=== PATIENT | male | born 1985 | race Caucasian/White ===

== ENCOUNTER 2020-09-06 13:26 | Inpatient (IN) ==
[2020-09-06 14:09] LABS: Basophils # (auto) 0.01 K/uL (0-0.2); Basophils % (auto) 0.3 %; Eosinophils # (auto) 0.24 K/uL (0-0.5); Eosinophils % (auto) 8.1 %; Hematocrit (blood only) 38.6 % (42-52); Hemoglobin 13.9 g/dL (14.0-18.0); Immature Granulocytes # (auto) 0.02 K/uL (0.00-0.02); Immature Granulocytes % (auto) 0.7 %; Lymphocytes # (auto) 1.34 K/uL (1.2-3.4); Lymphocytes % (auto) 45.3 %; Mean Corpuscular Hemoglobin 31.5 pg (25-34); Mean Corpuscular Volume 87.5 fL (80-100); Mean Platelet Volume 9.4 fL (7.4-10.4); Monocytes # (auto) 0.19 K/uL (0.11-0.59); Monocytes % (auto) 6.4 %; Neutrophils # (auto) 1.16 K/uL (1.4-6.5); Neutrophils % (auto) 39.2 %; Platelet Count 104 K/uL (130-400); RDW Coefficient of Variation 14.5 % (11.5-14.5); RDW Standard Deviation 46.1 fL (36.4-46.3); Red Blood Count 4.41 M/uL (4.7-6.1); White Blood Count 2.96 K/uL (4.8-10.8)
[2020-09-06 14:28] LABS: Albumin Level 3.2 gm/dl (3.4-5.0); BUN Creatinine Ratio 9.1 (10-20); Calcium 8.5 mg/dl (8.5-10.1); Creatinine Clr Calc Pharmacy 140.9 ml/min; Est GFR (African American) 138.2 ml/min; Est GFR (Non-African American) 119.2 ml/min; Potassium 3.4 mmol/L (3.5-5.1)
[2020-09-06 14:35] LABS: Albumin Globulin Ratio 1.2 (0.9-2); Bilirubin,Total 1.4 mg/dl (0.2-1); Globulin 2.7 gm/dl (2.5-4.0); Total Protein 5.9 gm/dl (6.4-8.2)
[2020-09-06] MEDS ORDERED: ACETYLCYSTEINE IV ONE ×4 (14:51→21:25)
[2020-09-06] MEDS ORDERED: DEXTROSE 5% IV ONE ×4 (14:51→21:25)
--- NOTE | 2020-09-06 14:51 | Emergency Department Note ---
History of Present Illness General Chief complaint: Illness Stated complaint: DIZZY/FEELING WEAK LIKE HE IS GOING TO FALL OVER Time Seen by Provider: 09/06/20 14:01 History of Present Illness Provider complaint: Dizziness Onset (ago): day(s) 1 Associated symptoms: + nausea/vomiting; no fever/chills 35-year-old male presents emergency department with his for dizziness. Patient reports he had dizziness starting this morning. He states he feels like the room was spinning. He states he is having difficulty focusing his eyes. He reports nausea and vomiting. He reports vomiting 5 times. He reports vomiting clear liquid. No hematemesis coffee-ground emesis or bilious vomiting. No abdominal pain. Patient reports he feels like he has dry mouth. Patient does mention that he took kratom at 8 AM at the request of a friend he told him to take it since he recently had his teeth extracted. Patient states he has been taking Motrin for his dental pain. Patient states he is vaccinated against COVID-19. He drinks 2 alcoholic beverages a day. Patient has no history of any liver problems. No suicidal ideation. Patient was taken to kratom not an intent to hurt himself. Patient states he is not HIV positive. Home Medications Medication Instructions Recorded Confirmed Type inhalational spacing device #1 ea 02/27/20 09/01/20 Rx lamotrigine 100 mg tablet 100 mg PO BID #60 tab 04/03/20 09/06/20 Rx gabapentin 300 mg capsule 300 mg PO TID 90 Days #270 cap 04/23/20 09/06/20 Rx quetiapine 25 mg tablet 25 - 50 mg PO HS #180 tab 04/24/20 09/06/20 Rx ondansetron 8 mg disintegrating 8 mg PO Q8H PRN #60 tab 06/02/20 09/06/20 Rx tablet bupropion HCl 100 mg tablet,12 hr 100 mg PO BID #180 ea 06/03/20 09/06/20 Rx sustained-release clonazepam 0.5 mg tablet 0.5 mg PO BID #60 tab 06/25/20 09/06/20 Rx albuterol sulfate 90 mcg/actuation 2 puff INH BID PRN #18 g 07/21/20 09/06/20 Rx aerosol inhaler lamotrigine 150 mg tablet 150 mg PO BID #180 tab 08/28/20 09/06/20 Rx amlodipine 5 mg PO QAM 09/06/20 09/06/20 History amoxicillin 500 mg PO TID 09/06/20 09/06/20 History chlorthalidone 25 mg PO QAM 09/06/20 09/06/20 History dextroamphetamine [Dexedrine 15 mg PO QAM 09/06/20 09/06/20 History Spansule] olanzapine 10 mg PO PM 09/06/20 09/06/20 History Allergies Allergy/AdvReac Type Severity Reaction Status Date / Time No Known Allergies Allergy Unverified 09/06/20 14:35 Past Med/Surg History Medical History Asthma Attention deficit Benign essential hypertension Depression LGENNY (generalized anxiety disorder) Surgical History S/P hernia surgery S/P tonsillectomy S/P wisdom tooth extraction Family History Mother COPD (chronic obstructive pulmonary disease) Father Congestive heart failure (CHF) Denies family history of Ovarian cancer Prostate cancer Myocardial infarction Breast cancer Colorectal cancer Social History Smoking Status: Current every day smoker Tobacco Type: Cigarettes Age Started Using Tobacco: 27; Cigarettes Per Day: 10; Second Hand Exposure: No; Hx Alcohol Use: Yes Alcohol type: beer Hx Substance Use: No Preferred Language: Bengali Communication Ability: Effective Visual Impairment: No Limitations Hearing Ability: Normal Beliefs That Will Affect Care: None marital status: Current Living Situation: Spouse current occupational status: employed 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 Other Information That Helps Us Care for You: No Feels Safe at Home: Yes Safety Concerns: Feels Safe At This Time Childhood Exposure to Second-Hand Smoke: Yes caffeine: Yes (1-2 cups of coffee daily) Dental Care, Regularly: Yes Physical Activity Frequency: 3-4 Times per Week Seatbelt Use: always Sunscreen Use: Yes Do you think of yourself as: lesbian/tovar/homosexual Assistive Devices: Contacts and Glasses Review of Systems A total of 10 systems reviewed and were otherwise negative Physical Exam Vital Signs Vital Signs - 24 hr 09/06/20 13:33 09/06/20 13:48 09/06/20 13:49 Temperature 36.5 C Temperature Source Temporal Artery Scan Pulse Rate 111 H Pulse Rate [Apical] 107 H 113 H Pulse Rate from SpO2 Sensor Pulse Rhythm Regular Respiratory Rate 18 18 Respiratory Effort / Characteristics Non-Labored Spontaneous Non-Labored Respiratory Depth Normal Normal Respiratory Pattern Regular Blood Pressure 137/73 Blood Pressure [Right Arm] 136/85 121/81 Blood Pressure Mean 94 Blood Pressure Mean [Right Arm] 102 94 Blood Pressure Position [Right Arm] Sitting Standing Pulse Oximetry 94 Oxygen Delivery Method Room Air Sepsis Recent Fever Within 48 Hours No Sepsis New/Unexplained Change in Mental Status No Sepsis Action Taken by Nursing No Action Required 09/06/20 15:51 09/06/20 16:00 09/06/20 16:30 Temperature Temperature Source Pulse Rate 94 H 92 H 97 H Pulse Rate [Apical] Pulse Rate from SpO2 Sensor 94 H 92 H 98 H Pulse Rhythm Respiratory Rate 19 18 15 Respiratory Effort / Characteristics Respiratory Depth Respiratory Pattern Blood Pressure 153/102 H 135/101 H 147/104 H Blood Pressure [Right Arm] Blood Pressure Mean 119 112 118 Blood Pressure Mean [Right Arm] Blood Pressure Position [Right Arm] Pulse Oximetry 97 96 97 Oxygen Delivery Method Sepsis Recent Fever Within 48 Hours Sepsis New/Unexplained Change in Mental Status Sepsis Action Taken by Nursing 09/06/20 17:00 Temperature Temperature Source Pulse Rate 93 H Pulse Rate [Apical] Pulse Rate from SpO2 Sensor 94 H Pulse Rhythm Respiratory Rate 18 Respiratory Effort / Characteristics Respiratory Depth Respiratory Pattern Blood Pressure 157/113 H Blood Pressure [Right Arm] Blood Pressure Mean 127 Blood Pressure Mean [Right Arm] Blood Pressure Position [Right Arm] Pulse Oximetry 95 Oxygen Delivery Method Sepsis Recent Fever Within 48 Hours Sepsis New/Unexplained Change in Mental Status Sepsis Action Taken by Nursing Physical Exam GENERAL: He is oriented to person, place, and time. He appears well-developed and well-nourished. He does not appear distressed. HENT: Exam performed. - Head: Normocephalic and atraumatic. - Right Ear: External ear normal. No mastoid tenderness. - Left Ear: External ear normal. No mastoid tenderness. - Mouth/Throat: The oropharynx is clear and moist. No trismus in the jaw. No dental abscesses or uvula swelling. No oropharyngeal exudate or tonsillar abscesses. EYES: Conjunctivae and EOM are normal. Pupils are equal, round, and reactive to light. Right eye exhibits no discharge. Left eye exhibits no discharge. No scleral icterus. NECK: Normal range of motion. Neck supple. No JVD present. No spinous process tenderness present. No carotid bruit present. No rigidity. No tracheal deviation and normal range of motion present. No Brudzinski's sign and no Kernig's sign noted. CV: Tachycardic rate, regular rhythm, normal heart sounds and intact distal pulses. There is no peripheral edema. Palpable radial pulses bue. PULM/CHEST: Effort normal and breath sounds normal. No respiratory distress. No stridor. He has no wheezes. He has no rales. - Chest Wall: He exhibits no tenderness. ABD: The abdomen is soft. Bowel sounds are normal. He has no distension. No mass is present. There is no tenderness. There is no rebound, no guarding, no Lopez's sign and no tenderness at McBurney's point. Rovsig negative. MUSC/SKEL: Normal range of motion. There is no peripheral edema, tenderness or deformity. LYMPH: No cervical adenopathy. NEURO: He is alert and oriented to person, place, and time. He has normal strength. No cranial nerve deficit or sensory deficit. Coordination and gait normal. GCS eye subscore is 4. GCS verbal subscore is 5. GCS motor subscore is 6. Cerebellar tests wnl. SKIN: Skin is warm and dry. He is not diaphoretic. PSYCH: He has a normal mood and affect. Behavior is normal. Judgment and thought content normal. Course Course 1401: The patient was evaluated in room C1. A complete history and physical exam was performed Cardiac monitoring: An order was placed for continuous cardiac monitoring. The monitor shows a rate of 110 with sinus tachycardia rhythm 1444: Spoke with poison control and they stated that the patient's symptoms of dizziness dry mouth nausea and vomiting are typical with kratom ingestion. Labs show hemoglobin 2.96 AST/ALT 365/3427 respectively. Total bilirubin 1.4. I did discuss the patient's elevated liver enzymes with the [facility] Control [facility] and they did state that given his elevated liver enzymes would be beneficial to give the patient an NAC treatment for 24 hours. Will add Tylenol level, salicylate level, lipase, medical alcohol and drug screen. Patient denies any suicidal or homicidal thoughts. He denies taking the kratom for suicidal purposes. Will obtain CT of his head and face also as well as ultrasound of his gallbladder. 1618: Vital signs stable. Ultrasound of the right upper quadrant is within normal limits. CT of the head and face show possible osteomyelitis. Discussed the case with Dr. Albert RODRIGUEZ on-call who agrees to be a consult states he will evaluate patient in the morning. Vancomycin ordered for the patient. NAC infusing. Patient will be admitted to the [facility] Dr. Mancia team. Administered Medications Lactated Ringer's (Lr) 1,000 mls @ 125 mls/hr IV .Q8H ANDREA Stop: 09/07/20 10:10 Last Admin: 09/06/20 18:41 Dose: 125 mls/hr Documented by: [id number] Ondansetron HCl (Ondansetron Inj 2 Mg/Ml 2 Ml Vial) 4 mg IV Q6H PRN PRN Reason: Nausea Stop: 10/06/20 17:10 Last Admin: 09/06/20 17:15 Dose: 4 mg Documented by: [id number] Discontinued Medications Acetylcysteine 12,980 mg/ (Dextrose) 264.9 mls @ 200 mls/hr IV ONCE ONE; Protocol Stop: 09/06/20 16:10 Last Infusion: 09/06/20 17:19 Dose: 0 mls/hr Documented by: [id number] Admin: 09/06/20 15:52 Dose: 200 mls/hr Documented by: [id number] Acetylcysteine 4,330 mg/ (Dextrose) 521.65 mls @ 125 mls/hr IV ONCE ONE; Protocol Stop: 09/06/20 19:01 Last Admin: 09/06/20 17:15 Dose: 125 mls/hr Documented by: [id number] Ioversol (Optiray 320 100ml) 89 ml IV ONCE ONE Stop: 09/06/20 15:08 Last Admin: 09/06/20 15:07 Dose: 89 ml Documented by: [id number] Medical Decision Making Laboratory Data Result diagrams: 09/06/20 13:55 09/06/20 13:55 Lab Results 09/06/20 09/06/20 09/06/20 Range/Units 13:55 13:55 14:56 WBC 2.96 L (4.8-10.8) K/uL RBC 4.41 L (4.7-6.1) M/uL Hgb 13.9 L (14.0-18.0) g/dL Hct 38.6 L (42-52) % MCV 87.5 (80-100) fL MCH 31.5 (25-34) pg MCHC 36.0 (32-36) g/dL RDW Std Deviation 46.1 (36.4-46.3) fL RDW Coeff of Maria Eugenia 14.5 (11.5-14.5) % Plt Count 104 L (130-400) K/uL MPV 9.4 (7.4-10.4) fL Immature Gran % (Auto) 0.7 % Neut % (Auto) 39.2 % Lymph % (Auto) 45.3 % [place] % (Auto) 6.4 % Eos % (Auto) 8.1 % Baso % (Auto) 0.3 % Neut # (Auto) 1.16 L (1.4-6.5) K/uL Lymph # (Auto) 1.34 (1.2-3.4) K/uL [place] # (Auto) 0.19 (0.11-0.59) K/uL Eos # (Auto) 0.24 (0-0.5) K/uL Baso # (Auto) 0.01 (0-0.2) K/uL Immature Gran # (Auto) 0.02 (0.00-0.02) K/uL Sodium 135 L (136-145) mmol/L Potassium 3.4 L (3.5-5.1) mmol/L Chloride 104 (98-107) mmol/L Carbon Dioxide 23 (21-32) mmol/L Anion Gap 8.0 (3-11) BUN 7 (7-18) mg/dl Creatinine 0.77 (0.6-1.4) mg/dl Est Cr Clr Drug Dosing 140.9 ml/min Est GFR ( Amer) 138.2 ml/min Est GFR (Non-Af Amer) 119.2 ml/min BUN/Creatinine Ratio 9.1 L (10-20) Glucose 137 H (70-99) mg/dl Calcium 8.5 (8.5-10.1) mg/dl Total Bilirubin 1.4 H (0.2-1) mg/dl AST 365 H (15-37) U/L ALT 3427 H (12-78) U/L Alkaline Phosphatase 139 H (45-117) U/L Total Protein 5.9 L (6.4-8.2) gm/dl Albumin 3.2 L (3.4-5.0) gm/dl Globulin 2.7 (2.5-4.0) gm/dl Albumin/Globulin Ratio 1.2 (0.9-2) Lipase (73-393) U/L Urine Color Urine Appearance (Clear) Urine pH (4.5-7.5) Ur Specific [place] (1.000-1.030) Urine Protein (Negative) Urine Glucose (UA) (Negative) Urine Ketones (Negative) Urine Blood (Negative) Urine Nitrite (Negative) Urine Bilirubin (Negative) Urine Urobilinogen (Negative) Ur Leukocyte Esterase (Negative) Salicylates 2.7 L (2.8-20) mg/dl Urine Opiates Screen (Neg) Ur Methadone, Qual (Neg) Acetaminophen < 2 L (10-30) ug/ml Urine Barbiturates (Neg) Ur Phencyclidine (PCP) (Neg) U Amphetamin/Meth Scrn (Neg) MDMA (Ecstasy) Screen (Neg) U Benzodiazepines Scrn (Neg) Ur Cocaine Metabolite (Neg) U Marijuana (THC) Screen (Neg) Ethyl Alcohol mg/dL (0-3) mg/dl COVID-19 Eval Order SARS-CoV-2 (PCR) (Negative) 09/06/20 09/06/20 09/06/20 Range/Units 14:56 14:56 15:51 WBC (4.8-10.8) K/uL RBC (4.7-6.1) M/uL Hgb (14.0-18.0) g/dL Hct (42-52) % MCV (80-100) fL MCH (25-34) pg MCHC (32-36) g/dL RDW Std Deviation (36.4-46.3) fL RDW Coeff of Maria Eugenia (11.5-14.5) % Plt Count (130-400) K/uL MPV (7.4-10.4) fL Immature Gran % (Auto) % Neut % (Auto) % Lymph % (Auto) % [place] % (Auto) % Eos % (Auto) % Baso % (Auto) % Neut # (Auto) (1.4-6.5) K/uL Lymph # (Auto) (1.2-3.4) K/uL [place] # (Auto) (0.11-0.59) K/uL Eos # (Auto) (0-0.5) K/uL Baso # (Auto) (0-0.2) K/uL Immature Gran # (Auto) (0.00-0.02) K/uL Sodium (136-145) mmol/L Potassium (3.5-5.1) mmol/L Chloride (98-107) mmol/L Carbon Dioxide (21-32) mmol/L Anion Gap (3-11) BUN (7-18) mg/dl Creatinine (0.6-1.4) mg/dl Est Cr Clr Drug Dosing ml/min Est GFR ( Amer) ml/min Est GFR (Non-Af Amer) ml/min BUN/Creatinine Ratio (10-20) Glucose (70-99) mg/dl Calcium (8.5-10.1) mg/dl Total Bilirubin (0.2-1) mg/dl AST (15-37) U/L ALT (12-78) U/L Alkaline Phosphatase (45-117) U/L Total Protein (6.4-8.2) gm/dl Albumin (3.4-5.0) gm/dl Globulin (2.5-4.0) gm/dl Albumin/Globulin Ratio (0.9-2) Lipase 111 (73-393) U/L Urine Color Urine Appearance (Clear) Urine pH (4.5-7.5) Ur Specific [place] (1.000-1.030) Urine Protein (Negative) Urine Glucose (UA) (Negative) Urine Ketones (Negative) Urine Blood (Negative) Urine Nitrite (Negative) Urine Bilirubin (Negative) Urine Urobilinogen (Negative) Ur Leukocyte Esterase (Negative) Salicylates (2.8-20) mg/dl Urine Opiates Screen (Neg) Ur Methadone, Qual (Neg) Acetaminophen (10-30) ug/ml Urine Barbiturates (Neg) Ur Phencyclidine (PCP) (Neg) U Amphetamin/Meth Scrn (Neg) MDMA (Ecstasy) Screen (Neg) U Benzodiazepines Scrn (Neg) Ur Cocaine Metabolite (Neg) U Marijuana (THC) Screen (Neg) Ethyl Alcohol mg/dL < 3.0 (0-3) mg/dl COVID-19 Eval Order Covid19 at [facility] SARS-CoV-2 (PCR) (Negative) 09/06/20 09/06/20 09/06/20 Range/Units 15:51 15:51 15:51 WBC (4.8-10.8) K/uL RBC (4.7-6.1) M/uL Hgb (14.0-18.0) g/dL Hct (42-52) % MCV (80-100) fL MCH (25-34) pg MCHC (32-36) g/dL RDW Std Deviation (36.4-46.3) fL RDW Coeff of Maria Eugenia (11.5-14.5) % Plt Count (130-400) K/uL MPV (7.4-10.4) fL Immature Gran % (Auto) % Neut % (Auto) % Lymph % (Auto) % [place] % (Auto) % Eos % (Auto) % Baso % (Auto) % Neut # (Auto) (1.4-6.5) K/uL Lymph # (Auto) (1.2-3.4) K/uL [place] # (Auto) (0.11-0.59) K/uL Eos # (Auto) (0-0.5) K/uL Baso # (Auto) (0-0.2) K/uL Immature Gran # (Auto) (0.00-0.02) K/uL Sodium (136-145) mmol/L Potassium (3.5-5.1) mmol/L Chloride (98-107) mmol/L Carbon Dioxide (21-32) mmol/L Anion Gap (3-11) BUN (7-18) mg/dl Creatinine (0.6-1.4) mg/dl Est Cr Clr Drug Dosing ml/min Est GFR ( Amer) ml/min Est GFR (Non-Af Amer) ml/min BUN/Creatinine Ratio (10-20) Glucose (70-99) mg/dl Calcium (8.5-10.1) mg/dl Total Bilirubin (0.2-1) mg/dl AST (15-37) U/L ALT (12-78) U/L Alkaline Phosphatase (45-117) U/L Total Protein (6.4-8.2) gm/dl Albumin (3.4-5.0) gm/dl Globulin (2.5-4.0) gm/dl Albumin/Globulin Ratio (0.9-2) Lipase (73-393) U/L Urine Color Yellow Urine Appearance Clear (Clear) Urine pH 7.0 (4.5-7.5) Ur Specific [place] 1.027 (1.000-1.030) Urine Protein Negative (Negative) Urine Glucose (UA) Negative (Negative) Urine Ketones Negative (Negative) Urine Blood Negative (Negative) Urine Nitrite Negative (Negative) Urine Bilirubin Negative (Negative) Urine Urobilinogen Negative (Negative) Ur Leukocyte Esterase Negative (Negative) Salicylates (2.8-20) mg/dl Urine Opiates Screen Neg (Neg) Ur Methadone, Qual Neg (Neg) Acetaminophen (10-30) ug/ml Urine Barbiturates Neg (Neg) Ur Phencyclidine (PCP) Neg (Neg) U Amphetamin/Meth Scrn Pos H (Neg) MDMA (Ecstasy) Screen Pos H (Neg) U Benzodiazepines Scrn Neg (Neg) Ur Cocaine Metabolite Neg (Neg) U Marijuana (THC) Screen Neg (Neg) Ethyl Alcohol mg/dL (0-3) mg/dl COVID-19 Eval Order SARS-CoV-2 (PCR) NEGATIVE (Negative) Imaging Data Radiologist's Impression: Gallbladder Ultrasound 09/06/20 14:42 US gallbladder HISTORY: 35 years-old Male transaminitis acutely elevated LFTs COMPARISON: None TECHNIQUE: Multiple real-time sonographic images of the abdominal right upper quadrant were obtained assessing grayscale appearance and color flow FINDINGS: The pancreas is mostly obscured by bowel gas. The liver is within normal limits. No hepatic mass or intrahepatic biliary ductal dilation. Hepatopedal flow noted within the portal vein. Mildly contracted gallbladder. No gallbladder wall thickening, shadowing cholelithiasis or pericholecystic fluid. Normal common bile duct, 3 mm. The imaged right kidney is unremarkable without hydronephrosis. IMPRESSION: 1. No cholelithiasis or sonographic evidence of acute cholecystitis. 2. No biliary ductal dilation. ACT 112: Negative or not required by law. The above report was generated using voice recognition software. It may contain grammatical, syntax or spelling errors. Electronically signed by: Elijah Bower M.D. 09/06/2020 3:[address] 09/06/20 14:42 CT head/brain wo con CLINICAL HISTORY: 35 years-old Male with ams. Acutely altered mental status TECHNIQUE: Multiple axial CT images of the head were obtained without contrast. A dose lowering technique was utilized adhering to the principles of ALARA. COMPARISON: CT maxillofacial same day FINDINGS: No acute intracranial hemorrhage, midline shift, intracranial mass, hydrocephalus, territorial ischemia or abnormal extra-axial collection. The calvarium is intact. The mastoid air cells are clear. Mild mucosal thick ening of the ethmoid air cells. IMPRESSION: No acute intracranial abnormality. ACT 112: Negative or not required by law. The above report was generated using voice recognition software. It may contain grammatical, syntax or spelling errors. Electronically signed by: Elijah Bower M.D. 09/06/2020 3:[address] 09/06/20 14:43 CT facial bones w con HISTORY: 35 years-old Male recent dental extraction ro abscess acute facial pain with recent dental extraction COMPARISON: CT head of same day TECHNIQUE: Multiple axial CT images of the facial bones were obtained following the intravenous administration of 89 mL Optiray 320. A dose lowering technique was used consistent with the principals of ALARA. FINDINGS: The imaged intracranial structures demonstrate no acute abnormality. The bilateral orbits are unremarkable. Streak artifact from dental amalgam hardware limits evaluation of the adjacent tissues. There is no significant inflammatory stranding or abscess identified. Patent airway. Parotid and submandibular glands are unremarkable. No adenopathy. No acute facial bone fracture. The mastoid air cells and middle ear cavities are clear. Moderate mucosal thickening of the ethmoid air cells. Polypoid mucosal thickening of the right maxillary sinus measures up to 2 cm. There is evidence of numerous dental extractions, notably within the mandible. Partially debris and air filled extraction cavities within the mandible with mild dehiscence of the anterior cortex of several teeth, notably within the region of the left mandibular bicuspid distribution on image 118 series 6. IMPRESSION: 1. Evidence of numerous dental extractions, notably within the mandible. There is anterior cortical thinning/dehiscence involving several mandibular tooth sockets, notably within the region of the left mandibular bicuspid distribution. Correlate clinically to exclude osteomyelitis. 2. No significant soft tissue swelling or abscess. 3. Moderate mucosal thickening of the ethmoid air cells. 4. No adenopathy. ACT 112: Negative or not required by law. The above report was generated using voice recognition software. It may contain grammatical, syntax or spelling errors. Electronically signed by: Elijah Bower M.D. 09/06/2020 3:48 PM ECG Data Indication: + other (dizziness) Rate (beats per minute): 105 Rhythm: + normal sinus ECG Intervals/blocks: + Normal QRS, + Normal MI and + Normal QT-c ECG ST segments: + Normal ST segments MDM Narrative 1401: The patient was evaluated in room C1. A complete history and physical exam was performed Cardiac monitoring: An order was placed for continuous cardiac monitoring. The monitor shows a rate of 110 with sinus tachycardia rhythm 1444: Spoke with poison control and they stated that the patient's symptoms of dizziness dry mouth nausea and vomiting are typical with kratom ingestion. Labs show hemoglobin 2.96 AST/ALT 365/3427 respectively. Total bilirubin 1.4. I did discuss the patient's elevated liver enzymes with the Poison Control Center and they did state that given his elevated liver enzymes would be beneficial to give the patient an NAC treatment for 24 hours. Will add Tylenol level, salicylate level, lipase, medical alcohol and drug screen. Patient denies any suicidal or homicidal thoughts. He denies taking the kratom for suicidal purposes. Will obtain CT of his head and face also as well as ultrasound of his gallbladder. 1618: Vital signs stable. Ultrasound of the right upper quadrant is within normal limits. CT of the head and face show possible osteomyelitis. Discussed the case with Dr. [place] [facility] [place] who agrees to be a consult states he will evaluate patient in the morning. Vancomycin ordered for the patient. NAC infusing. Patient will be admitted to the [facility] Dr. Mancia team. Impression & Plan Ingestion of substance, Transaminitis, Osteomyelitis Discharge Plan Visit Data Chief Complaint: Illness Stated Complaint: DIZZY/FEELING WEAK LIKE HE IS GOING TO FALL OVER ED Provider: Royer Acosta Discharge Problem: Ingestion of substance, Transaminitis, Osteomyelitis Patient Disposition: Admitted As Inpatient Discharge Instructions Interventions: ED Discharge Assessment Last Done: 09/06/20 17:47 Discharge Problem: Ingestion of substance Qualifiers: Encounter type: initial encounter Injury intent: accidental or unintentional Qualified Code(s): T65.91XA - Toxic effect of unspecified substance, accidental (unintentional), initial encounter Osteomyelitis Qualifiers: Osteomyelitis type: unspecified type Osteomyelitis location: unspecified site Qualified Code(s): M86.9 - Osteomyelitis, unspecified
[2020-09-06] MEDS ORDERED: OPTIRAY 320 100ml IV ONE (15:07)
--- NOTE | 2020-09-06 15:18 | CT Scan Report ---
CT head/brain wo con CLINICAL HISTORY: 35 years-old Male with ams. Acutely altered mental status TECHNIQUE: Multiple axial CT images of the head were obtained without contrast. A dose lowering tech nique was utilized adhering to the principles of ALARA. COMPARISON: CT maxillofacial same day FINDINGS: No acute intracranial hemorrhage, midline shift, intracranial mass, hydrocephalus, territorial ischem ia or abnormal extra-axial collection. The calvarium is intact. The mastoid air cells are clear. Mild mucosal thickening of the ethmoid air cells. IMPRESSION: No acute intracranial abnormality. ACT 112: Negative or not required by law. The above report was generated using voice recognition software. It may contain grammatical, syntax o r spelling errors. Electronically signed by: Elijah Bower M.D. 09/06/2020 3:17 PM
[2020-09-06 15:37] LABS: Acetaminophen < 2 ug/ml (10-30); Salicylate 2.7 mg/dl (2.8-20)
--- NOTE | 2020-09-06 15:44 | Ultrasound Report ---
US gallbladder HISTORY: 35 years-old Male transaminitis acutely elevated LFTs COMPARISON: None TECHNIQUE: Multiple real-time sonographic images of the abdominal right upper quadrant were obtained assessing grayscale appearance and color flow FINDINGS: The pancreas is mostly obscured by bowel gas. The liver is within normal limits. No hepatic mass or i ntrahepatic biliary ductal dilation. Hepatopedal flow noted within the portal vein. Mildly contracted gallbladder. No gallbladder wall thickening, shadowing cholelithiasis or pericholecystic fluid. Norm al common bile duct, 3 mm. The imaged right kidney is unremarkable without hydronephrosis. IMPRESSION: 1. No cholelithiasis or sonographic evidence of acute cholecystitis. 2. No biliary ductal dilation. ACT 112: Negative or not required by law. The above report was generated using voice recognition software. It may contain grammatical, syntax o r spelling errors. Electronically signed by: Elijah Bower M.D. 09/06/2020 3:43 PM
--- NOTE | 2020-09-06 15:49 | CT Scan Report ---
CT facial bones w con HISTORY: 35 years-old Male recent dental extraction ro abscess acute facial pain with recent dental extraction COMPARISON: CT head of same day TECHNIQUE: Multiple axial CT images of the facial bones were obtained following the intravenous admin istration of 89 mL Optiray 320. A dose lowering technique was used consistent with the principals of ALEXANDREA. FINDINGS: The imaged intracranial structures demonstrate no acute abnormality. The bilateral orbits are unremar kable. Streak artifact from dental amalgam hardware limits evaluation of the adjacent tissues. There is no significant inflammatory stranding or abscess identified. Patent airway. Parotid and submandibu lar glands are unremarkable. No adenopathy. No acute facial bone fracture. The mastoid air cells and middle ear cavities are clear. Moderate muco edouard thickening of the ethmoid air cells. Polypoid mucosal thickening of the right maxillary sinus elsie sures up to 2 cm. There is evidence of numerous dental extractions, notably within the mandible. Part ially debris and air filled extraction cavities within the mandible with mild dehiscence of the anter ior cortex of several teeth, notably within the region of the left mandibular bicuspid distribution o n image 118 series 6. IMPRESSION: 1. Evidence of numerous dental extractions, notably within the mandible. There is anterior cortical t hinning/dehiscence involving several mandibular tooth sockets, notably within the region of the left mandibular bicuspid distribution. Correlate clinically to exclude osteomyelitis. 2. No significant soft tissue swelling or abscess. 3. Moderate mucosal thickening of the ethmoid air cells. 4. No adenopathy. ACT 112: Negative or not required by law. The above report was generated using voice recognition software. It may contain grammatical, syntax o r spelling errors. Electronically signed by: Elijah Bower M.D. 09/06/2020 3:48 PM
[2020-09-06] MEDS ORDERED: VANCOMYCIN HCL 1,750 MG in SODIUM CHLORIDE 0.9% 500 ML IV ONE (16:04)
[2020-09-06] MEDS ORDERED: VANCOMYCIN CONSULT ACTIVE PRN (16:04)
[2020-09-06 16:06] LABS: Appearance Urine Clear (Clear); Bilirubin Urine Negative (Negative); Blood Urine Negative (Negative); Color Urine Yellow; Glucose Urine UA Negative (Negative); Ketones Urine Negative (Negative); Leukocyte Esterase Urine Negative (Negative); Nitrite Urine Negative (Negative); Protein Urine Negative (Negative); Specific Gravity Urine 1.027 (1.000-1.030); Urobilinogen Urine Negative (Negative)
[2020-09-06 16:27] LABS: Amphetamines+Metham, Urine Pos (Neg); Barbiturates, Urine Neg (Neg); Benzodiazepine, Urine Neg (Neg); Cocaine, Urine Neg (Neg); MDMA (Ecstacy), Urine Pos (Neg); Methadone, Urine Neg (Neg); Opiate, Urine Neg (Neg); Phencyclidine, Urine Neg (Neg)
--- NOTE | 2020-09-06 16:32 | History & Physical Report ---
Date of Service September 06, 2020 Assessment & Plan (1) Ingestion of toxin: Patient was taking Tylenol 3 and Motrin all week and then ingested kratom which is a synthetic street drug. He has no side effects of hyperstimulation or anything to that point right now however this may impact his transaminitis. Patient does however claim that some of his mental status changes and ill feelings preceded even his Tylenol 3 ingestion earlier the week (2) Transaminitis: And is extremely unusual picture of transaminitis with ALT being 3000, AST of 300 total bili 1.4 alkaline phosphatase 139. Poison control was called and recommended acetylcysteine protocol which was initiated in the ER Ultrasound gallbladder showed no abnormalities no concern for hepatic vein thrombosis liver size within normal limits (3) Depression: Patient typically takes bupropion 100 twice daily he takes he takes dextroamphetamine which will be held gabapentin 300 3 times daily which be continued lamotrigine 250 twice daily, olanzapine 10 PM , quetiapine 25-50 p.m. which will be held (4) Pain, dental: Will have as needed morphine for dental pain with as needed oxycodone. Oral maxillofacial surgery consultation and patient will be started on Unasyn for oral mucosal coverage for possibility of suggested to be osteomyelitis of his mandible seen on CT scan CT scan reading is as follows "There is anterior cortical thinning/dehiscence involving several mandibular tooth sockets, notably within the region of the left mandibular bicuspid distribution. Correlate clinically to exclude osteomyelitis." (5) Hypertension: Continue amlodipine and will hold chlorthalidone at this time have as needed hydralazine if needed for blood pressure control (6) DVT prophylaxis: CDs at this point time will check PT/INR look at liver synthetic function in the morning History of Present Illness Primary Care Provider: Fred Rios, III, [employer] 35-year-old male presents emergency department with his for dizziness. Patient reports he had dizziness starting this morning. He states he feels like the room was spinning. He states he is having difficulty focusing his eyes. He reports nausea and vomiting. He reports vomiting 5 times. He reports vomiting clear liquid. No hematemesis coffee-ground emesis or bilious vomiting. No abdominal pain. Patient reports he feels like he has dry mouth. Patient does mention that he took kratom at 8 AM at the request of a friend he told him to take it since he recently had his teeth extracted. On further questioning the patient states the symptoms may have preceded his dental pain which began approximately on Tuesday the week prior. States throughout that week he was taking Tylenol 3 and Motrin for his dental pain. Patient states he is vaccinated against COVID-19. He drinks 2 alcoholic beverages a day. Patient has no history of any liver problems. No suicidal ideation. He denies any recent changes in his prescription medications or any other ldip-ymz-zvbsjie or street drugs patient was taken to [facility] not an intent to hurt himself. Patient states he is not HIV positive. Allergies Allergy/AdvReac Type Severity Reaction Status Date / Time No Known Allergies Allergy Unverified 09/06/20 14:35 Home Medications Medication Instructions Recorded Confirmed Type inhalational spacing device #1 ea 02/27/20 09/01/20 Rx lamotrigine 100 mg tablet 100 mg PO BID #60 tab 04/03/20 09/06/20 Rx gabapentin 300 mg capsule 300 mg PO TID 90 Days #270 cap 04/23/20 09/06/20 Rx quetiapine 25 mg tablet 25 - 50 mg PO HS #180 tab 04/24/20 09/06/20 Rx ondansetron 8 mg disintegrating 8 mg PO Q8H PRN #60 tab 06/02/20 09/06/20 Rx tablet bupropion HCl 100 mg tablet,12 hr 100 mg PO BID #180 ea 06/03/20 09/06/20 Rx sustained-release clonazepam 0.5 mg tablet 0.5 mg PO BID #60 tab 06/25/20 09/06/20 Rx albuterol sulfate 90 mcg/actuation 2 puff INH BID PRN #18 g 07/21/20 09/06/20 Rx aerosol inhaler lamotrigine 150 mg tablet 150 mg PO BID #180 tab 08/28/20 09/06/20 Rx amlodipine 5 mg PO QAM 09/06/20 09/06/20 History amoxicillin 500 mg PO TID 09/06/20 09/06/20 History chlorthalidone 25 mg PO QAM 09/06/20 09/06/20 History dextroamphetamine [Dexedrine 15 mg PO QAM 09/06/20 09/06/20 History Spansule] olanzapine 10 mg PO PM 09/06/20 09/06/20 History Past Med/Surg History Medical History Asthma Attention deficit Benign essential hypertension Depression GLENNY (generalized anxiety disorder) Surgical History S/P hernia surgery S/P tonsillectomy S/P wisdom tooth extraction Family History Mother COPD (chronic obstructive pulmonary disease) Father Congestive heart failure (CHF) Denies family history of Ovarian cancer Prostate cancer Myocardial infarction Breast cancer Colorectal cancer Social History Smoking Status: Current every day smoker Tobacco Type: Cigarettes Age Started Using Tobacco: 27; Cigarettes Per Day: 10; Second Hand Exposure: No; Hx Alcohol Use: Yes Alcohol type: beer Hx Substance Use: No Preferred Language: Jamaican Communication Ability: Effective Visual Impairment: No Limitations Hearing Ability: Normal marital status: Current Living Situation: Spouse current occupational status: employed 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 Feels Safe at Home: Yes Childhood Exposure to Second-Hand Smoke: Yes caffeine: Yes (1-2 cups of coffee daily) Dental Care, Regularly: Yes Physical Activity Frequency: 3-4 Times per Week Seatbelt Use: always Sunscreen Use: Yes Do you think of yourself as: lesbian/tovar/homosexual Review of Systems Review of Systems: Mild distress and fatigue no headache, does complain of occasional blurry & double vision Significant lower mandibular pain from front teeth total extraction of 5-6 teeth no speech or swallowing issues no chest pain, pressure or palpitations no shortness of breath, cough or wheezes no abdominal pain, has had increasing nausea or vomiting, has had no diarrhea had significant constipation no dysuria, hematuria or frequency no focal joint pain or swelling no back pain, CVA tenderness or radicular pain no bruising, bleeding or rashes no focal signs of weakness or numbness or feels foggy in his head no complaints of anxiety or depression.. Physical Exam Physical Exam: The patient appeared well nourished and normally developed. Vital signs as documented. Head exam is normocephalic atraumatic Examination of his mandibular jaw shows extraction of the lower front teeth no significant purulence or erythema minor submandibular lymphadenopathy Neck is without JVD, thyromegaly, or carotid bruits. Lungs are clear to auscultation, no focal loss of breath sounds Cardiac exam, Rhythm is regular.. No murmurs, rubs or gallops. Abdominal exam reveals normal bowel sounds, soft non tender, no masses no hepatomegaly Extremities are nonedematous and both pedal pulses are present Neurologic exam is alert and oriented, no focal loss of strength or sensation Skin is without bruises or rashes Psychologically is without concerns for anxiety or depression Results & Data Results & Data ([facility]) Vital Signs (Past 12 Hours) Vital Signs Temp Pulse Pulse Resp BP BP Pulse Ox 09/06/20 16:00 92 H 18 135/101 H 96 09/06/20 15:51 94 H 19 153/102 H 97 09/06/20 13:49 113 H 121/81 09/06/20 13:48 107 H 18 136/85 09/06/20 13:33 97.7 F 111 H 18 137/73 94 Gallbladder Ultrasound 09/06/20 14:42 US gallbladder HISTORY: 35 years-old Male transaminitis acutely elevated LFTs COMPARISON: None TECHNIQUE: Multiple real-time sonographic images of the abdominal right upper quadrant were obtained assessing grayscale appearance and color flow FINDINGS: The pancreas is mostly obscured by bowel gas. The liver is within normal limits. No hepatic mass or intrahepatic biliary ductal dilation. Hepatopedal flow noted within the portal vein. Mildly contracted gallbladder. No gallbladder wall thickening, shadowing cholelithiasis or pericholecystic fluid. Normal common bile duct, 3 mm. The imaged right kidney is unremarkable without hydronephrosis. IMPRESSION: 1. No cholelithiasis or sonographic evidence of acute cholecystitis. 2. No biliary ductal dilation. ACT 112: Negative or not required by law. The above report was generated using voice recognition software. It may contain grammatical, syntax or spelling errors. Electronically signed by: Elijah Bower M.D. 09/06/2020 3:[address] 09/06/20 14:42 CT head/brain wo con CLINICAL HISTORY: 35 years-old Male with ams. Acutely altered mental status TECHNIQUE: Multiple axial CT images of the head were obtained without contrast. A dose lowering technique was utilized adhering to the principles of ALARA. COMPARISON: CT maxillofacial same day FINDINGS: No acute intracranial hemorrhage, midline shift, intracranial mass, hydroceph alus, territorial ischemia or abnormal extra-axial collection. The calvarium is intact. The mastoid air cells are clear. Mild mucosal thickening of the ethmoid air cells. IMPRESSION: No acute intracranial abnormality. ACT 112: Negative or not required by law. The above report was generated using voice recognition software. It may contain grammatical, syntax or spelling errors. Electronically signed by: Elijah Bower M.D. 09/06/2020 3:[address] 09/06/20 14:43 CT facial bones w con HISTORY: 35 years-old Male recent dental extraction ro abscess acute facial pain with recent dental extraction COMPARISON: CT head of same day TECHNIQUE: Multiple axial CT images of the facial bones were obtained following the intravenous administration of 89 mL Optiray 320. A dose lowering technique was used consistent with the principals of ALEXANDREA. FINDINGS: The imaged intracranial structures demonstrate no acute abnormality. The bilateral orbits are unremarkable. Streak artifact from dental amalgam hardware limits evaluation of the adjacent tissues. There is no significant inflammatory stranding or abscess identified. Patent airway. Parotid and submandibular glands are unremarkable. No adenopathy. No acute facial bone fracture. The mastoid air cells and middle ear cavities are clear. Moderate mucosal thickening of the ethmoid air cells. Polypoid mucosal thickening of the right maxillary sinus measures up to 2 cm. There is evidence of numerous dental extractions, notably within the mandible. Partially debris and air filled extraction cavities within the mandible with mild dehiscence of the anterior cortex of several teeth, notably within the region of the left mandibular bicuspid distribution on image 118 series 6. IMPRESSION: 1. Evidence of numerous dental extractions, notably within the mandible. There is anterior cortical thinning/dehiscence involving several mandibular tooth sockets, notably within the region of the left mandibular bicuspid distribution. Correlate clinically to exclude osteomyelitis. 2. No significant soft tissue swelling or abscess. 3. Moderate mucosal thickening of the ethmoid air cells. 4. No adenopathy. ACT 112: Negative or not required by law. The above report was generated using voice recognition software. It may contain grammatical, syntax or spelling errors. Electronically signed by: Elijah Bower M.D. 09/06/2020 3:48 PM PG Care Time/CCT Total # of Minutes Spent Total Time Spent with Patient: Total time spent is greater than 50% in coordination of care (as documented) at patient's floor/unit and/or counseling patient: Coding Level of Care Code 61570 Initial Inpt Care Lvl 3 Diagnoses Ingestion of toxin T65.91XA Transaminitis R74.01 Depression F32.9 Pain, dental K08.89 Hypertension I10 DVT prophylaxis Z29.9
[2020-09-06] MEDS ORDERED: ONDANSETRON INJ 2 MG/ML 2 ML VIAL IV PRN ×2 (17:11→19:14)
[2020-09-06] MEDS ORDERED: HYDROmorphone INJ 0.5 MG/0.5 ML SYR IV PRN (18:11)
[2020-09-06] MEDS: LACTATED RINGER'S 1,000 ML IV SCH (18:41)
[2020-09-06] MEDS ORDERED: hydrALAZINE HCL 20 MG/ML VIAL IV PRN (18:43)
[2020-09-06] MEDS ORDERED: cloNIDine HCL 0.1 MG TAB PO PRN (18:43)
[2020-09-06] MEDS ORDERED: PROMETHAZINE HCL 12.5 MG in SODIUM CHLORIDE 0.9% 50 ML IV PRN (19:13)
[2020-09-06] MEDS ORDERED: ondansetron HCL 8 MG in DEXTROSE 5% 50 ML IV PRN (19:19)
[2020-09-06] MEDS: AMPICILLIN/SULBACTAM SOD 3,000 MG in 0.9 % SODIUM CHLORIDE 100 ML IV SCH (19:22)
[2020-09-06] MEDS ORDERED: lamoTRIgine 100 MG TAB PO SCH ×2 (21:00)
[2020-09-06] MEDS: lamoTRIgine 100 MG TAB PO SCH (21:43)
[2020-09-06] MEDS: clonazePAM 0.5 MG TAB PO SCH (21:43)
[2020-09-06] MEDS: OLANZapine 10 MG TAB PO SCH (21:45)
[2020-09-06] MEDS: GABAPENTIN 300 MG CAP PO SCH (21:45)
[2020-09-06] MEDS: buPROPion SR 100 MG TABCR PO SCH (21:46)
[2020-09-07] MEDS: AMPICILLIN/SULBACTAM SOD 3,000 MG in 0.9 % SODIUM CHLORIDE 100 ML IV SCH ×2 (00:08→06:04)
[2020-09-07] MEDS: LACTATED RINGER'S 1,000 ML IV SCH (03:31)
--- NOTE | 2020-09-07 06:26 | Electrocardiogram Report ---
Test Reason : Blood Pressure : / mmHG Vent. Rate : 105 BPM Atrial Rate : 105 BPM P-R Int : 162 ms QRS Dur : 080 ms QT Int : 342 ms P-R-T Axes : 039 -07 050 degrees QTc Int : 452 ms Sinus tachycardia Low voltage QRS Possible Septal infarct , age undetermined Abnormal ECG No previous ECGs available Confirmed by Gerald Cross ([id number]) on 09/07/2020 6:26:25 AM Referred By: Confirmed By:Gerald Cross
[2020-09-07 06:37] LABS: Hematocrit (blood only) 37.4 % (42-52); Hemoglobin 13.4 g/dL (14.0-18.0); Mean Corpuscular Hemoglobin 31.5 pg (25-34); Mean Corpuscular Hgb Conc 35.8 g/dL (32-36); Mean Platelet Volume 9.3 fL (7.4-10.4); Platelet Count 113 K/uL (130-400); RDW Coefficient of Variation 14.8 % (11.5-14.5); RDW Standard Deviation 47.5 fL (36.4-46.3); Red Blood Count 4.25 M/uL (4.7-6.1); White Blood Count 2.78 K/uL (4.8-10.8)
[2020-09-07 06:53] LABS: Prothrombin Time 10.6 Seconds (9.0-12.0)
[2020-09-07 07:10] LABS: Albumin Level 2.8 gm/dl (3.4-5.0); Aspartate Aminotransferase 173 U/L (15-37); BUN Creatinine Ratio 7.2 (10-20); Blood Urea Nitrogen 4 mg/dl (7-18); Calcium 8.1 mg/dl (8.5-10.1); Carbon Dioxide 24 mmol/L (21-32); Chloride 112 mmol/L (98-107); Creatinine Clr Calc Pharmacy 193.7 ml/min; Est GFR (African American) > 150.0 ml/min; Est GFR (Non-African American) 135.9 ml/min; Glucose 102 mg/dl (70-99); Potassium 3.6 mmol/L (3.5-5.1)
[2020-09-07 07:16] LABS: Alanine Aminotransferase 2438 U/L (12-78); Alkaline Phosphatase 113 U/L (45-117); Globulin 2.8 gm/dl (2.5-4.0); Total Protein 5.6 gm/dl (6.4-8.2)
[2020-09-07 07:41] LABS: Sodium 142 mmol/L (136-145)
--- NOTE | 2020-09-07 07:52 | Oral/Maxillofacial Consult ---
Date of Consultation September 07, 2020 History of Present Illness Attending Physician: Vern Morgan MD Oral Maxillofacial Surgery Exam admitted to 283 bed 1 Request for consult regarding abnormal CT scan Andriy : Upon review of the case,CT scan and clinical exam: There is no clinical evidence to support the CT scan findings regarding osteomyelitis. I can say with certainty that no osteomyelitis exists Present Complaint: 35-year-old male presented to the emergency department with his for dizziness. I had my lower front teeth removed on September 04 at [facility] in [place]. Pain Symptoms have been ongoing for a while they would come and go. The symptoms have gotten worse prompting extraction of teeth on September 04. Patient states he has been taking Motrin and Tylenol # 3 for his dental pain. Patient reports he had dizziness starting Tuesday morning. He states he is having difficulty focusing his eyes. Patient does mention that he took Kratom at 8 AM at the request of a friend he told him to take Oral Exam: Finding--Excellent result, well sutured extraction sites, no swelling, tissue tone excellent. Pain is now well controlled. At 3 days no evidence of infection, swelling, bleeding to suggest any deviation of normal healing. Imaging: CT findings Evidence of numerous dental extractions, notably within the mandible. There is anterior cortical thinning/dehiscence involving several mandibular tooth sockets, notably within the region of the left mandibular bicuspid distribution. Correlate clinically to exclude osteomyelitis. I reviewed the CT scan and note the recent dental extractions. The CT scan shows the extraction sites as expected at [address] does not support any evidence of osteomyelitis. Based on the fact that the surgical sites are healing so well, no swelling, no drainage and resolving pain I see no clinical evidence of any type of bony infection. There is no clinical evidence to support the CT scan findings regarding osteomyelitis. I can say with certainty that no osteomyelitis exists Soft tissue: floor of the mouth, tongue, hard/soft palate, posterior pharyngeal area all with in normal limits, no pathology or abnormal findings noted. Extraction site at 3 days look Great! No facial swelling or chin swelling Oral tissue looks good at 3 days post extraction of anterior teeth. TMJ exam: No pop, clicking, pain, good ROM, No history of TMJ injury or dysfunction Head/Neck exam: Neck is supple, FROM, Able to extend and flex neck w/o difficulty, no masses, no abnormalities, no airway issues, no signs of infection to support the CT scan suggestion of an osteomyelitis. Treatment Plan: No treatment from an oral surgery point of view is needed while in hospital. Diet as tolerated Patient has follow up from dental office in 1 week. I reviewed the treatment plan with Og Understanding was expressed. Time was given for questions regarding his recent dental surgery and post op care. Home care reviewed: tooth brushing, rinsing, follow up care with his dentist diet=[id number] dental. Discussed activity level, driving/work while on Rx pain Meds. Allergies Allergy/AdvReac Type Severity Reaction Status Date / Time No Known Allergies Allergy Unverified 09/06/20 14:35 Home Medications Medication Instructions Recorded Confirmed Type inhalational spacing device #1 ea 02/27/20 09/01/20 Rx lamotrigine 100 mg tablet 100 mg PO BID #60 tab 04/03/20 09/06/20 Rx gabapentin 300 mg capsule 300 mg PO TID 90 Days #270 cap 04/23/20 09/06/20 Rx quetiapine 25 mg tablet 25 - 50 mg PO HS #180 tab 04/24/20 09/06/20 Rx ondansetron 8 mg disintegrating 8 mg PO Q8H PRN #60 tab 06/02/20 09/06/20 Rx tablet bupropion HCl 100 mg tablet,12 hr 100 mg PO BID #180 ea 06/03/20 09/06/20 Rx sustained-release clonazepam 0.5 mg tablet 0.5 mg PO BID #60 tab 06/25/20 09/06/20 Rx albuterol sulfate 90 mcg/actuation 2 puff INH BID PRN #18 g 07/21/20 09/06/20 Rx aerosol inhaler lamotrigine 150 mg tablet 150 mg PO BID #180 tab 08/28/20 09/06/20 Rx amlodipine 5 mg PO QAM 09/06/20 09/06/20 History amoxicillin 500 mg PO TID 09/06/20 09/06/20 History chlorthalidone 25 mg PO QAM 09/06/20 09/06/20 History dextroamphetamine [Dexedrine 15 mg PO QAM 09/06/20 09/06/20 History Spansule] olanzapine 10 mg PO PM 09/06/20 09/06/20 History Patient History Medical History Asthma Attention deficit Benign essential hypertension Depression GLENNY (generalized anxiety disorder) Surgical History S/P hernia surgery S/P tonsillectomy S/P wisdom tooth extraction Family History Mother COPD (chronic obstructive pulmonary disease) Father Congestive heart failure (CHF) Denies family history of Ovarian cancer Prostate cancer Myocardial infarction Breast cancer Colorectal cancer Social History Smoking Status: Current every day smoker Tobacco Type: Cigarettes Age Started Using Tobacco: 27; Cigarettes Per Day: 10; Second Hand Exposure: No; Hx Alcohol Use: Yes Alcohol type: beer Hx Substance Use: No Preferred Language: Citizen Of [place] Communication Ability: Effective Visual Impairment: No Limitations Hearing Ability: Normal Beliefs That Will Affect Care: None marital status: Current Living Situation: Spouse current occupational status: employed 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 Other Information That Helps Us Care for You: No Feels Safe at Home: Yes Safety Concerns: Feels Safe At This Time Childhood Exposure to Second-Hand Smoke: Yes caffeine: Yes (1-2 cups of coffee daily) Dental Care, Regularly: Yes Physical Activity Frequency: 3-4 Times per Week Seatbelt Use: always Sunscreen Use: Yes Do you think of yourself as: lesbian/tovar/homosexual Assistive Devices: None Results & Data ([facility]) Vital Signs (Past 12 Hours) Vital Signs Temp Pulse Pulse Resp BP Pulse Ox 09/07/20 07:02 36.8 C 96 H 18 142/99 H 96 09/07/20 03:46 36.8 C 92 H 20 126/86 94 09/06/20 23:24 36.3 C L 98 H 20 151/93 H 95 09/06/20 22:20 98 H 09/06/20 20:01 103 H 09/06/20 19:57 104 H 151/93 H PG Care Time/CCT Total # of Minutes Spent Total Time Spent with Patient: Total time spent is greater than 50% in coordination of care (as documented) at patient's floor/unit and/or counseling patient: Coding Level of Care Code 07414 Office/OBS Consult Lvl 3
[2020-09-07 08:03] LABS: Albumin Level 2.9 gm/dl (3.4-5.0); Bilirubin Direct 0.5 mg/dl (0-0.2); Bilirubin,Total 0.9 mg/dl (0.2-1); Total Protein 5.7 gm/dl (6.4-8.2)
[2020-09-07] MEDS: buPROPion SR 100 MG TABCR PO SCH ×2 (08:07→21:19)
[2020-09-07] MEDS: GABAPENTIN 300 MG CAP PO SCH ×3 (08:07→21:20)
[2020-09-07] MEDS: amLODIPine BESYLATE 5 MG TAB PO SCH (08:07)
[2020-09-07] MEDS: lamoTRIgine 100 MG TAB PO SCH ×2 (08:08→21:19)
[2020-09-07] MEDS: clonazePAM 0.5 MG TAB PO SCH ×2 (08:11→21:18)
[2020-09-07] MEDS: oxyCODONE HCL IR 5 MG TAB (IMMEDIATE RELEASE) PO PRN ×3 (08:11→21:18)
[2020-09-07 09:42] LABS: Prothrombin Time 10.5 Seconds (9.0-12.0)
[2020-09-07] MEDS ORDERED: ACETYLCYSTEINE IV ONE (14:06)
[2020-09-07] MEDS ORDERED: DEXTROSE 5% IV ONE (14:06)
--- NOTE | 2020-09-07 15:35 | Hospitalist Progress Note ---
Date of Service September 07, 2020 Assessment & Plan (1) Ingestion of toxin: Patient was taking Tylenol 3 and Motrin all week and then ingested kratom which is a synthetic street drug. He continues with tranaminitis, will continue acetylcistine and recheck transaminase in another day (2) Transaminitis: And is extremely unusual picture of transaminitis with ALT initially being 3000, AST of 300 total bili 1.4 alkaline phosphatase 139. Transaminases have all come down, Poison control was called and recommended additional acetylcysteine protocol which was initiated in the ER Ultrasound gallbladder showed no abnormalities no concern for hepatic vein thrombosis liver size within normal limits (3) Depression: Patient typically takes bupropion 100 twice daily he takes he takes dextroamphetamine which will be held gabapentin 300 3 times daily which be continued lamotrigine 250 twice daily, olanzapine 10 PM , quetiapine 25-50 p.m. which will be held (4) Pain, dental: Will have as needed morphine for dental pain with as needed oxycodone. Oral maxillofacial surgery consultation feels there no suggestion of osteomyelitis of his mandible seen on CT will stop antibiotics (5) Hypertension: Continue amlodipine and will restart chlorthalidone 09/08/20 (6) DVT prophylaxis: SCDs at this point time will check PT/INR look at liver synthetic function in the morning Admission and Anticipated Discharge Date Admission Date: September 06, 2020 Subjective pt feels much better today , teeth are less painful, did get cleared by oral surgery, poison control requests continued acetylcistine Review of Systems Review of Systems: Mild distress and fatigue no headache, does complain of occasional blurry & double vision Significant lower mandibular pain from front teeth total extraction of 5-6 teeth no speech or swallowing issues no chest pain, pressure or palpitations no shortness of breath, cough or wheezes no abdominal pain, has had increasing nausea or vomiting, has had no diarrhea had significant constipation no dysuria, hematuria or frequency no focal joint pain or swelling no back pain, CVA tenderness or radicular pain no bruising, bleeding or rashes no focal signs of weakness or numbness or feels foggy in his head no complaints of anxiety or depression.. Physical Exam Physical Exam: The patient appeared well nourished and normally developed. Vital signs as documented. Head exam is normocephalic atraumatic Examination of his mandibular jaw shows extraction of the lower front teeth no significant purulence or erythema minor submandibular lymphadenopathy Neck is without JVD, thyromegaly, or carotid bruits. Lungs are clear to auscultation, no focal loss of breath sounds Cardiac exam, Rhythm is regular.. No murmurs, rubs or gallops. Abdominal exam reveals normal bowel sounds, soft non tender, no masses no hepatomegaly Extremities are nonedematous and both pedal pulses are present Neurologic exam is alert and oriented, no focal loss of strength or sensation Skin is without bruises or rashes Psychologically is without concerns for anxiety or depression Results & Data Results & Data ([facility]) Vital Signs (Past 12 Hours) Vital Signs Temp Pulse Pulse Resp BP Pulse Ox 09/07/20 15:25 97.9 F 107 H 18 133/88 92 09/07/20 11:22 99.1 F 107 H 16 137/90 94 09/07/20 08:00 96 H 09/07/20 07:02 98.2 F 96 H 18 142/99 H 96 09/07/20 03:46 98.2 F 92 H 20 126/86 94 PG Care Time/CCT Total # of Minutes Spent Total Time Spent with Patient: Total time spent is greater than 50% in coordination of care (as documented) at patient's floor/unit and/or counseling patient: Coding Level of Care Code 69776 Subseq Hosp Care Lvl 2 Diagnoses Ingestion of toxin T65.91XA Transaminitis R74.01 Depression F32.9 Pain, dental K08.89 Hypertension I10 DVT prophylaxis Z29.9
[2020-09-07] MEDS: OLANZapine 10 MG TAB PO SCH (21:18)
[2020-09-08 02:42] LABS: Hematocrit (blood only) 39.6 % (42-52); Hemoglobin 13.8 g/dL (14.0-18.0); Mean Corpuscular Hemoglobin 31.7 pg (25-34); Mean Corpuscular Hgb Conc 34.8 g/dL (32-36); Mean Corpuscular Volume 90.8 fL (80-100); Platelet Count 118 K/uL (130-400); RDW Coefficient of Variation 15.4 % (11.5-14.5); RDW Standard Deviation 51.5 fL (36.4-46.3); Red Blood Count 4.36 M/uL (4.7-6.1); White Blood Count 3.97 K/uL (4.8-10.8)
[2020-09-08 02:50] LABS: Prothrombin Time 10.6 Seconds (9.0-12.0)
[2020-09-08 03:03] LABS: Albumin Level 2.9 gm/dl (3.4-5.0); BUN Creatinine Ratio 4.4 (10-20); Bilirubin Direct 0.4 mg/dl (0-0.2); Calcium 8.5 mg/dl (8.5-10.1); Creatinine Clr Calc Pharmacy 157.2 ml/min; Est GFR (African American) 144.6 ml/min; Est GFR (Non-African American) 124.7 ml/min; Potassium 3.4 mmol/L (3.5-5.1)
[2020-09-08 03:11] LABS: Bilirubin,Total 0.8 mg/dl (0.2-1); Total Protein 5.9 gm/dl (6.4-8.2)
[2020-09-08] MEDS: lamoTRIgine 100 MG TAB PO SCH (08:12)
[2020-09-08] MEDS: clonazePAM 0.5 MG TAB PO SCH (08:12)
[2020-09-08] MEDS: amLODIPine BESYLATE 5 MG TAB PO SCH (08:13)
[2020-09-08] MEDS: buPROPion SR 100 MG TABCR PO SCH (08:13)
[2020-09-08] MEDS: GABAPENTIN 300 MG CAP PO SCH ×2 (08:13→13:40)
[2020-09-08] MEDS ORDERED: CHLORTHALIDONE 25 MG TAB PO SCH (09:00)
--- NOTE | 2020-09-08 14:58 | Discharge Summary ---
Date of Service September 08, 2020 Admission HPI Per Admitting Provider 35-year-old male presents emergency department with his for dizziness. Patient reports he had dizziness starting this morning. He states he feels like the room was spinning. He states he is having difficulty focusing his eyes. He reports nausea and vomiting. He reports vomiting 5 times. He reports vomiting clear liquid. No hematemesis coffee-ground emesis or bilious vomiting. No abdominal pain. Patient reports he feels like he has dry mouth. Patient does mention that he took kratom at 8 AM at the request of a friend he told him to take it since he recently had his teeth extracted. On further questioning the patient states the symptoms may have preceded his dental pain which began approximately on Tuesday the week prior. States throughout that week he was taking Tylenol 3 and Motrin for his dental pain. Patient states he is vaccinated against COVID-19. He drinks 2 alcoholic beverages a day. Patient has no history of any liver problems. No suicidal ideation. He denies any recent changes in his prescription medications or any other [id number] or street drugs patient was taken to kratom not an intent to hurt himself. Patient states he is not HIV positive. Principal Diagnosis Transaminitis due to ingestion Discharge Exam Constitutional WD/WN, vitals as above Neck trachea midline, no thyromegaly Respiratory normal respiratory effort, lungs clear to auscultation Cardiovascular RRR, no murmur, no edema Gastrointestinal (Abdomen) normal bowel sounds, soft, nontender, no hepatosplenomegaly Musculoskeletal no cyanosis or clubbing, extremities motor strength 5/5 Skin no rashes, warm and dry Neurologic patellar DTR's 2+ bilat, sensation intact and PERRL, EOMI, accommodation nl, no face palsy, no dysarthria Psychiatric A+Ox3, euthymic affect Lymphatic no cervical or axillary lymphadenopathy Discharge Data Allergies Allergy/AdvReac Type Severity Reaction Status Date / Time No Known Allergies Allergy Unverified 09/06/20 14:35 Consultations 09/06/20 16:11 ED Decision to Admit Stat 09/06/20 18:11 Consult Oromaxillofacial Surgery Routine Ordered Studies 09/06/20 14:42 CT head/brain wo con Stat US gallbladder Stat 09/06/20 14:43 CT facial bones w con Stat Hospital Course (1) Ingestion of toxin: Patient was taking Tylenol 3 and Motrin all week and then ingested kratom which is a synthetic street drug. ALT down to 1900 from 3400 no RUQ pain, normal bilirubin, normal INR, AST is near normal he is eating well, vitals stable he will be discharged to home and will check CMP daily x 3 days knows to avoid all Tylenol and certainly kratom will follow up with PCP (2) Transaminitis: And is extremely unusual picture of transaminitis with ALT initially being 3000, AST of 300 total bili 1.4 alkaline phosphatase 139. Poison control was called and recommended additional acetylcysteine protocol which was initiated in the ER second round of acetylcysteine given and completed shipping hand on 09/08, poison control stated that no further acetylcystein was needed as stated above, ALT down to 1900 from 3400 on admission, AST near normal, bili and INR normal, alk phos normal Cr stable, vitals stable, no RUQ pain, eating/drinking well Ultrasound gallbladder showed no abnormalities no concern for hepatic vein thrombosis liver size within normal limits will check CMP daily x 3 days as outpatient to make sure ALT continues to fall follow up with PCP (3) Depression: Patient typically takes bupropion 100 twice daily he takes he takes dextroamphetamine which will be held gabapentin 300 3 times daily which be continued lamotrigine 250 twice daily, olanzapine 10 PM , quetiapine 25-50 p.m. (4) Pain, dental: as needed oxycodone. Oral maxillofacial surgery consultation feels there no suggestion of osteomyelitis of his mandible seen on CT will stop antibiotics (5) Hypertension: Continue amlodipine and will restart chlorthalidone 09/08/20 Total Time Total Time Spent Total Time Spent (In Minutes): 33 minutes Total Time Includes: Examination of the Patient, Discharge Planning and Medication Reconciliation Discharge Plan Discharge Items Patient Disposition: Home - Self-Care Reason For Visit: TOXIC INGESTION, TRANSAMINIITIS,MANDIBULAR OSTEOMY Discharge Diagnosis: Transaminitis Toxic ingestion Condition on Discharge: Good Goals: check labs daily for the next three days follow up with PCP Activity: Resume your previous activity Driving/Machine Use: No limitations Weightbearing: Full weightbearing Non-emergency contact: Primary Care Provider Call non-emergency contact if: you have any medication questions and your symptoms worsen Follow-up/Referrals: Fred Rios III, CRNP [Primary Care Provider] - 09/17/20 9:20 am Diet: Regular Ambulatory Orders: Comprehensive Metabolic Panel (DAILY) Timeframe: 20200910 Location: Determined by Patient Ordered By: Pedro Pablo Porras Comprehensive Metabolic Panel (DAILY) Timeframe: 20200911 Location: Determined by Patient Ordered By: Pedro Pablo Porras Comprehensive Metabolic Panel (DAILY) Timeframe: 20200912 Location: Determined by Patient Ordered By: Pedro Pablo Porras Addtl Attending Provider Instructions: Medications: - OXYCODONE: you can fill this if you are having severe pain, otherwise no need to fill Transaminitis: due to excessive Tylenol and ingestion of Kratom initial ALT was quite high at 3400, it has trended down to 1900 now AST and bilirubin are stable, INR is normal at 1.0 no evidence of portal vein thrombosis or gall bladder disease you need to AVOID all TYLENOL and products that might contain Tylenol (acetaminophen) it is safe to use Ibuprofen 600mg every 6 hours for pain I would like you to get blood work daily for three days and I will get results as well as Fred MARS I will contact you if you need to come back to hospital but your liver enzymes should only continue to improve over time follow up with Fred MARS on 09/17/20 Pending Studies at Discharge: No Stand-Alone Forms: My [facility], Smoking Cessation Medications and DC Order Prescriptions: New oxycodone 5 mg Tablet 5 mg PO Q6H PRN (Reason: pain) 5 Days Qty: 20 RF: 0 Continued lamotrigine 100 mg tablet 100 mg PO BID Qty: 60 RF: 5 gabapentin 300 mg capsule 300 mg PO TID 90 Days Qty: 270 RF: 1 quetiapine 25 mg tablet 25 - 50 mg PO HS Qty: 180 RF: 1 ondansetron 8 mg tablet,disintegrating 8 mg PO Q8H PRN (Reason: nausea and vomiting) Qty: 60 RF: 0 clonazepam 0.5 mg tablet 0.5 mg PO BID Qty: 60 RF: 2 albuterol sulfate [ProAir HFA] 90 mcg/actuation HFA aerosol inhaler 2 puff INH BID PRN (Reason: shortness of breath or wheezing) Qty: 18 RF: 1 lamotrigine 150 mg tablet 150 mg PO BID Qty: 180 RF: 1 (DME) Aerochamber MV Spacer See Rx Instructions .ROUTE .MEDSUPPLY Qty: 1 RF: 0 bupropion HCl [Wellbutrin SR] 100 mg tablet sustained-release 12 hr 100 mg PO BID Qty: 180 RF: 1 dextroamphetamine [Dexedrine Spansule] 15 mg capsule, extended release 15 mg PO QAM RF: 0 olanzapine 10 mg tablet 10 mg PO PM RF: 0 chlorthalidone 25 mg tablet 25 mg PO QAM RF: 0 amlodipine 5 mg tablet 5 mg PO QAM RF: 0 Discontinued amoxicillin 500 mg capsule 500 mg PO TID RF: 0 No Action dextroamphetamine 10 mg tablet 15 mg PO DAILY 30 Days Qty: 45 RF: 0 Discharge Orders: Discharge Order (Routine); Ordered 09/08/20 Ordered By: Pedro Pablo Porras Admission Data Admit Date/Time: 09/06/20 17:03 Attending Provider: Pedro Pablo Porras Admit Provider: Vern Morgan Primary Care Provider: Fred Rios III Other Providers: Vern oMrgan ; Yefri Price Other Interventions: Discharge Summary Assessment (RN) Last Done: 09/08/20 15:12 Coding Level of Care Code D/C Day Management >30 mins Diagnoses Ingestion of toxin T65.91XA Transaminitis R74.01 Depression F32.9 Pain, dental K08.89 Hypertension I10
[2020-09-10 11:21] LABS: Amphetamine Urine, Confirm 3970 ng/mL (<250); MDA negative; MDEA negative; MDMA (Ecstasy) Urine, Confirm negative; Methamphetamine, Ur Confirm NEGATIVE ng/mL (<250)
== END 2020-09-08 15:35 | disposition home or self-care (01) | DRG 918 ==
LOC: ED 13:26 → SUATTDRO 17:03 → 2N 17:03